=== PATIENT | male | born 1985 | race Caucasian/White ===

== ENCOUNTER → 2021-05-10 11:34 | Emergency (ER) | payer SELFPAY ==
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
== END | disposition left against medical advice (07) ==
LOC: MED 11:34
DX: Z53.21 Procedure and treatment not carried out due to patient leaving prior to being seen by health care provider (principal)

== ENCOUNTER 2022-06-13 12:38 | Emergency (ER) | payer OTHER ==
[~2022-06-13] VITALS: Ht 165.1 cm; Wt 78.9 kg
--- NOTE | 2022-06-13 12:38 | NUR ---
PT BIBA TO BED 09.
[2022-06-13 12:46] VITALS: BP 133/96
--- NOTE | 2022-06-13 12:51 | NUR ---
PATIENT LEFT WITHOUT BEING SEEN BY DR. C[place]AND. NO FURTHER CARE PROVIDED FOR PATIENT.
== END 2022-06-13 12:51 | disposition left against medical advice (07) ==
LOC: MED 12:38
DX: T50.7X1A Poisoning by analeptics and opioid receptor antagonists, accidental (unintentional), initial encounter (principal); Y92.89 Other specified places as the place of occurrence of the external cause; Z53.21 Procedure and treatment not carried out due to patient leaving prior to being seen by health care provider